=== PATIENT | male | born 1930 | race Two or more races ===

== ENCOUNTER 2018-01-19 20:51 | Inpatient (IN) | payer MEDICARE, OTHER ==
[~2018-01-19] VITALS: Ht 177.8 cm; Wt 90.7 kg
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
--- NOTE | 2018-01-19 21:00 | NUR ---
AT BEDSIDE FOR EVAL.
[2018-01-19 21:21] LABS: BASOPHILS % (AUTO) 0.6 % (0.0-2.0); EOSINOPHILS % (AUTO) 3.5 % (0.0-6.0); HEMATOCRIT 29 % (39-51); HEMOGLOBIN 8.9 g/dL (13.5-17.5); LYMPHOCYTES % (AUTO) 14.8 % (20.0-44.0); MEAN CORPUSCULAR HGB CONC 31 g/dl (31.0-36.0); MEAN CORPUSCULAR VOLUME 76 fL (80-96); MONOCYTES # (AUTO) 0.7 /CMM (0.1-1.30); MONOCYTES % (AUTO) 9.6 % (2.0-12.0); NEUTROPHILS % (AUTO) 71.5 % (43.0-81.0); PLATELET COUNT (AUTO) 325 /CMM (150-450); RDW COEFFICIENT OF VARIATION 19.5 (11.5-15.0); RED BLOOD CELL COUNT(AUTO) 3.83 MIL/uL (4.5-6.0); WHITE BLOOD COUNT (AUTO) 7.1 K/uL (4.3-11.0)
[2018-01-19 21:31] LABS: CALCIUM, SERUM 8.8 mg/dL (8.5-10.1); CARBON DIOXIDE 28 mmol/L (21-32); CHLORIDE 103 mmol/L (98-107); CREATININE 0.8 mg/dL (0.6-1.3); GLUCOSE 100 mg/dL (74-106); SODIUM SERUM 139 mmol/L (136-145); UREA NITROGEN, BLOOD 13 mg/dL (7-18)
[2018-01-19 21:38] LABS: ACETAMINOPHEN 2 ug/ml (10-30); ALANINE AMINOTRANSFERASE 16 U/L (12-78); ALCOHOL, BLOOD < 3 mg/dL (0-0); ALKALINE PHOSPHATASE 87 U/L (46-116); ASPARTATE AMINOTRANSFERASE 18 U/L (15-37); BILIRUBIN,DIRECT 0.1 mg/dL (0.0-0.2); BILIRUBIN,TOTAL 0.2 mg/dL (0.2-1.0); TOTAL PROTEIN, SERUM 6.9 g/dL (6.4-8.2)
[2018-01-19 21:39] LABS: SALICYLATE 0.7 mg/dL (2.8-20.0)
--- NOTE | 2018-01-19 21:42 | NUR ---
CALLED [employer] FOR EVAL. MADE AWARE
--- NOTE | 2018-01-19 23:05 | NUR ---
PT ASSIGNED TO 211-B
--- NOTE | 2018-01-19 23:33 | NUR ---
REPORT GIVEN TO SHERMAN WINTER FOR [facility] 211-[facility]
[2018-01-20 00:05] VITALS: BP 144/76
--- NOTE | 2018-01-20 00:10 | NUR ---
PT TRANSPORTED TO [facility] VIA WITH EMT. VSS.
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
[2018-01-20] MEDS ORDERED: ESCI5TAB PO (00:21)
[2018-01-20] MEDS ORDERED: LOSA25TA13 PO (00:22)
[2018-01-20] MEDS ORDERED: FURO20TA4 PO (00:23)
[2018-01-20] MEDS ORDERED: FINA5TAB11 PO (00:24)
[2018-01-20] MEDS ORDERED: CRAN400T3 PO (00:25)
[2018-01-20] MEDS ORDERED: ATOR20TA PO (00:26)
[2018-01-20] MEDS ORDERED: ASPI-605 PO (00:27)
[2018-01-20] MEDS ORDERED: ALFU10TA10 PO (00:28)
[2018-01-20] MEDS ORDERED: TEMA15CA PO (00:29)
[2018-01-20] MEDS ORDERED: GABA-532 PO (00:30)
[2018-01-20] MEDS ORDERED: MELA5TAB PO (00:32)
[2018-01-20] MEDS ORDERED: TRAZ-182 PO (00:33)
[2018-01-20] MEDS ORDERED: TEMAZEPAM 15 MG CAPSULE PO PRN (01:00)
[2018-01-20] MEDS ORDERED: MAG HYDROX/AL HYDROX/SIMETH 30 ML UDC PO PRN (01:00)
[2018-01-20] MEDS ORDERED: LORAZEPAM 0.5 MG TABLET PO PRN (01:00)
[2018-01-20 08:27] LABS: APPEARANCE,URINE SL CLOUDY (CLEAR); BILIRUBIN,URINE NEGATIVE (NEGATIVE); BLOOD, URINE TRACE Ery/uL (NEGATIVE); COLOR,URINE YELLOW (YELLOW); KETONES,URINE NEGATIVE (NEGATIVE); LEUKOCYTE ESTERASE ,URINE 3+ (NEGATIVE); NITRITE, URINE NEGATIVE (NEGATIVE); PROTEIN,URINE NEGATIVE (NEGATIVE); UGLUCOSE NEGATIVE (NEGATIVE); UROBILINOGEN,URINE 0.2 EU/dL (0.2)
[2018-01-20 08:37] LABS: RBC,URINE 0-3 /HPF (0-2); WBC,URINE 51-80 /HPF (0-3)
[2018-01-20 08:38] LABS: BACTERIA,URINE Few /HPF (None Seen); SQUAMOUS EPITHELIAL CELL,UR Few /HPF (None Seen)
[2018-01-20 08:54] VITALS: BP 140/72
[2018-01-20] MEDS ORDERED: CRANBERRY FRUIT 400 MG PO SCH (09:00)
[2018-01-20] MEDS ORDERED: Alfuzosin Hcl 10 MG PO SCH (09:00)
[2018-01-20] MEDS: LOSARTAN POTASSIUM 25 MG TABLET PO SCH (09:10)
[2018-01-20] MEDS: FINASTERIDE (5 MG) 5 MG TABLET PO SCH (09:10)
[2018-01-20] MEDS: ATORVASTATIN 10 MG TABLET PO SCH (09:10)
[2018-01-20] MEDS: GABAPENTIN 100 MG CAPSULE PO SCH ×2 (09:10→16:20)
[2018-01-20] MEDS: ASPIRIN EC 81 MG TABLET.DR PO SCH (09:10)
[2018-01-20] MEDS: FUROSEMIDE 20 MG TABLET PO SCH (09:11)
--- NOTE | 2018-01-20 12:09 | NUR ---
WOUND CARE CONSULT: PT IS AMBULATORY AND CONTINENT. PT NOTED TO HAVE 4+ PITTING EDEMA TO BILATERAL LOWER LEGS, ANKLE AREAS AND FEET. DRY SCRATCHES/OLD RASH NOTED TO BACK. SKIN GROWTH NOTED TO LEFT PLANTAR FOOT. DEFER TO MD FOR SKIN GROWTH. WILL SEE PRN. MD IN AGREEMENT WITH PLAN OF CARE. Addendum: 01/20/18 at 1210 by MOSES ZAMAN WNDNU Amended: Links added.
[2018-01-20 16:00] VITALS: BP 135/62
[2018-01-20] MEDS: ESCITALOPRAM OXALATE (10 MG) 10 MG TABLET PO SCH (19:41)
[2018-01-20 19:53] VITALS: BP 112/53
[2018-01-20] MEDS: DIVALPROEX SODIUM 125 MG TABLET.DR PO SCH (20:05)
[2018-01-21 07:18] LABS: HEMATOCRIT 25 % (39-51); HEMOGLOBIN 8.5 g/dL (13.5-17.5); MEAN CORPUSCULAR HGB CONC 34 g/dl (31.0-36.0); MEAN CORPUSCULAR VOLUME 86 fL (80-96); PLATELET COUNT (AUTO) 302 /CMM (150-450); RDW COEFFICIENT OF VARIATION 19.1 (11.5-15.0); RED BLOOD CELL COUNT(AUTO) 2.95 MIL/uL (4.5-6.0); WHITE BLOOD COUNT (AUTO) 6.1 K/uL (4.3-11.0)
[2018-01-21 07:27] LABS: CHOLESTEROL 102 mg/dL (<200); HDL CHOLESTEROL 44 mg/dL (40-60); LDL 47 mg/dL (0-99); TRIGLYCERIDES 50 mg/dL (30-150)
[2018-01-21 07:29] LABS: ALANINE AMINOTRANSFERASE 15 U/L (12-78); ALBUMIN 2.8 g/dL (3.4-5.0); ALKALINE PHOSPHATASE 72 U/L (46-116); ASPARTATE AMINOTRANSFERASE 15 U/L (15-37); BILIRUBIN,TOTAL 0.4 mg/dL (0.2-1.0); CALCIUM, SERUM 8.8 mg/dL (8.5-10.1); CARBON DIOXIDE 28 mmol/L (21-32); CHLORIDE 103 mmol/L (98-107); CREATININE 0.7 mg/dL (0.6-1.3); GLUCOSE 89 mg/dL (74-106); POTASSIUM 4.1 mmol/L (3.5-5.1); SODIUM SERUM 136 mmol/L (136-145); TOTAL PROTEIN, SERUM 6.2 g/dL (6.4-8.2); UREA NITROGEN, BLOOD 11 mg/dL (7-18)
[2018-01-21 08:08] VITALS: BP 132/68
[2018-01-21] MEDS: DIVALPROEX SODIUM 125 MG TABLET.DR PO SCH ×2 (08:40→21:28)
[2018-01-21] MEDS: FINASTERIDE (5 MG) 5 MG TABLET PO SCH (08:40)
[2018-01-21] MEDS: LOSARTAN POTASSIUM 25 MG TABLET PO SCH (08:40)
[2018-01-21] MEDS: FUROSEMIDE 20 MG TABLET PO SCH (08:40)
[2018-01-21] MEDS: ATORVASTATIN 10 MG TABLET PO SCH (08:40)
[2018-01-21] MEDS: ASPIRIN EC 81 MG TABLET.DR PO SCH (08:40)
[2018-01-21] MEDS: GABAPENTIN 100 MG CAPSULE PO SCH ×2 (08:41→17:40)
[2018-01-21 09:27] LABS: EOSINOPHILS % (MANUAL) 1 % (0-4); LYMPHOCYTES % (MANUAL) 21 % (16-48); MONOCYTES % (MANUAL) 1 % (0-11.0); NEUTROPHILS % (MANUAL) 77 (42-76)
[2018-01-21 16:00] VITALS: BP 120/64
--- NOTE | 2018-01-21 17:23 | NUR ---
[id number]: SEEN BY DR. MILLIGAN AND WRITTEN NOTES MADE AWARE OF LABS. NO NEW ORDERS GIVEN AT THIS TIME.
[2018-01-21] MEDS: ESCITALOPRAM OXALATE (10 MG) 10 MG TABLET PO SCH (17:40)
[2018-01-21 20:03] VITALS: BP 121/56
[2018-01-21 23:00] VITALS: BP 123/65
--- NOTE | 2018-01-22 07:30 | NUR ---
RN GPS NOTES PT AWAKE, SITTING IN BED, EATING BREAKFAST, CALM AT THIS TIME, ALERT AND VERBALLY RESPONSIVE, DENIES PAIN, NOT IN DISTRESS.
[2018-01-22 08:00] VITALS: BP 132/77
[2018-01-22] MEDS: ASPIRIN EC 81 MG TABLET.DR PO SCH (09:04)
[2018-01-22] MEDS: FUROSEMIDE 20 MG TABLET PO SCH (09:05)
[2018-01-22] MEDS: ATORVASTATIN 10 MG TABLET PO SCH (09:05)
[2018-01-22] MEDS: GABAPENTIN 100 MG CAPSULE PO SCH ×2 (09:05→16:23)
[2018-01-22] MEDS: LOSARTAN POTASSIUM 25 MG TABLET PO SCH (09:05)
[2018-01-22] MEDS: FINASTERIDE (5 MG) 5 MG TABLET PO SCH (09:05)
[2018-01-22] MEDS: DIVALPROEX SODIUM 125 MG TABLET.DR PO SCH ×2 (09:05→21:19)
--- NOTE | 2018-01-22 15:35 | NUR ---
Initial Discharge Plan: Pt resides at the [facility], [address] [address]; per pts daughter report. Pt reported that he would like to return to his family home upon discharge ([address] [address]). SW spoke to pts daughter, Cheli Micahel, who agreed to discharge pt to a SNF; as it was recommended by his treating psychiatrist, Dr. Marroquin. SW informed pts daughter that pt had been accepted to [facility]. Cheli asked if pt could be discharged to [facility], [address] [facility] [address]; . SW will follow up to ensure pt is safely and adequately discharged.
--- NOTE | 2018-01-22 15:45 | NUR ---
SW faxed inquiry (face sheet, P&P, H&P, and med list) to [facility], [address] [place] [address]; , fax per pts daughter, Cheli Michael's request . BIRDIE will follow up.
[2018-01-22 16:00] VITALS: BP 113/58
[2018-01-22] MEDS: ESCITALOPRAM OXALATE (10 MG) 10 MG TABLET PO SCH (16:25)
--- NOTE | 2018-01-22 18:24 | NUR ---
RN GPS NOTES PT SITTING IN HIS ROOM, CALM AND COOPERATIVE WITH CARE, STAYED IN HIS ROOM MOST OF THE DAY, TOLERATING CURRENT DIET WELL, NEEDS ATTENDED, SAFETY PRECAUTIONS OBSERVED.
[2018-01-22 20:14] VITALS: BP 122/56
[2018-01-22 22:30] VITALS: BP 124/62
[2018-01-23 08:00] VITALS: BP 121/80
[2018-01-23] MEDS: DIVALPROEX SODIUM 125 MG TABLET.DR PO SCH ×2 (08:05→20:50)
[2018-01-23] MEDS: ASPIRIN EC 81 MG TABLET.DR PO SCH (08:05)
[2018-01-23] MEDS: FUROSEMIDE 20 MG TABLET PO SCH (08:05)
[2018-01-23] MEDS: GABAPENTIN 100 MG CAPSULE PO SCH ×2 (08:05→16:20)
[2018-01-23] MEDS: ATORVASTATIN 10 MG TABLET PO SCH (08:06)
[2018-01-23] MEDS: LOSARTAN POTASSIUM 25 MG TABLET PO SCH (08:06)
[2018-01-23] MEDS: FINASTERIDE (5 MG) 5 MG TABLET PO SCH (08:06)
--- NOTE | 2018-01-23 12:25 | NUR ---
SW faxed inquiry (face sheet, P&P, H&P, and med list) to [facility]; fax and per pts daughter, Cheli Michael's request . Inquiry was also faxed to: [facility], [address] [facility] [address] [facility] [address]; and fax # , [facility], [address] [facility] [place] [address]; and fax # and [facility]; fax. BIRDIE will follow up.
[2018-01-23 16:00] VITALS: BP 136/74
[2018-01-23] MEDS: ESCITALOPRAM OXALATE (10 MG) 10 MG TABLET PO SCH (16:20)
[2018-01-23 20:00] VITALS: BP 116/60
[2018-01-24 07:33] VITALS: BP 114/55
[2018-01-24] MEDS: FINASTERIDE (5 MG) 5 MG TABLET PO SCH (08:38)
[2018-01-24] MEDS: DIVALPROEX SODIUM 125 MG TABLET.DR PO SCH ×2 (08:38→20:56)
[2018-01-24] MEDS: ASPIRIN EC 81 MG TABLET.DR PO SCH (08:39)
[2018-01-24] MEDS: ATORVASTATIN 10 MG TABLET PO SCH (08:39)
[2018-01-24] MEDS: GABAPENTIN 100 MG CAPSULE PO SCH ×2 (08:39→17:04)
[2018-01-24] MEDS: FUROSEMIDE 20 MG TABLET PO SCH (09:35)
[2018-01-24] MEDS: LOSARTAN POTASSIUM 25 MG TABLET PO SCH (11:00)
[2018-01-24 15:39] VITALS: BP 125/96
[2018-01-24] MEDS: MAGNESIUM HYDROXIDE 30 ML UDC PO PRN (16:25)
[2018-01-24] MEDS: ACETAMINOPHEN 325 MG TABLET PO PRN ×2 (16:38→21:04)
[2018-01-24] MEDS: ESCITALOPRAM OXALATE (10 MG) 10 MG TABLET PO SCH (17:04)
[2018-01-24 20:00] VITALS: BP 136/58
[2018-01-25 08:00] VITALS: BP 132/71
[2018-01-25 09:00] LABS: EOSINOPHILS % (AUTO) 2.6 % (0.0-6.0); HEMATOCRIT 26 % (39-51); HEMOGLOBIN 8.1 g/dL (13.5-17.5); LYMPHOCYTES # (AUTO) 0.7 /CMM (0.8-4.8); LYMPHOCYTES % (AUTO) 14.9 % (20.0-44.0); MEAN CORPUSCULAR HGB CONC 32 g/dl (31.0-36.0); MEAN CORPUSCULAR VOLUME 74 fL (80-96); MONOCYTES # (AUTO) 0.7 /CMM (0.1-1.30); MONOCYTES % (AUTO) 15.4 % (2.0-12.0); NEUTROPHILS # (AUTO) 3.2 /CMM (1.8-8.9); NEUTROPHILS % (AUTO) 67.1 % (43.0-81.0); PLATELET COUNT (AUTO) 312 /CMM (150-450); RDW COEFFICIENT OF VARIATION 18.9 (11.5-15.0); RED BLOOD CELL COUNT(AUTO) 3.46 MIL/uL (4.5-6.0); WHITE BLOOD COUNT (AUTO) 4.7 K/uL (4.3-11.0)
[2018-01-25] MEDS: FINASTERIDE (5 MG) 5 MG TABLET PO SCH (09:04)
[2018-01-25] MEDS: ASPIRIN EC 81 MG TABLET.DR PO SCH (09:04)
[2018-01-25] MEDS: DIVALPROEX SODIUM 125 MG TABLET.DR PO SCH ×2 (09:05→20:55)
[2018-01-25] MEDS: ATORVASTATIN 10 MG TABLET PO SCH (09:05)
[2018-01-25] MEDS: FUROSEMIDE 20 MG TABLET PO SCH (09:05)
[2018-01-25] MEDS: LOSARTAN POTASSIUM 25 MG TABLET PO SCH (09:05)
[2018-01-25] MEDS: GABAPENTIN 100 MG CAPSULE PO SCH ×2 (09:06→17:10)
[2018-01-25 09:54] LABS: BAND % (MANUAL) 2 % (0.0-5.0); EOSINOPHILS % (MANUAL) 2 % (0-4); LYMPHOCYTES % (MANUAL) 10 % (16-48); MONOCYTES % (MANUAL) 15 % (0-11.0); NEUTROPHILS % (MANUAL) 71 (42-76)
[2018-01-25 16:04] VITALS: BP 136/75
[2018-01-25] MEDS: ESCITALOPRAM OXALATE (10 MG) 10 MG TABLET PO SCH (17:09)
[2018-01-25 20:00] VITALS: BP 108/50
[2018-01-26 08:00] VITALS: BP 129/62
[2018-01-26] MEDS: ASPIRIN EC 81 MG TABLET.DR PO SCH (08:18)
[2018-01-26] MEDS: FINASTERIDE (5 MG) 5 MG TABLET PO SCH (08:18)
[2018-01-26] MEDS: DIVALPROEX SODIUM 125 MG TABLET.DR PO SCH ×2 (08:18→21:11)
[2018-01-26] MEDS: GABAPENTIN 100 MG CAPSULE PO SCH ×2 (08:18→16:14)
[2018-01-26] MEDS: FUROSEMIDE 20 MG TABLET PO SCH (08:19)
[2018-01-26] MEDS: ATORVASTATIN 10 MG TABLET PO SCH (08:19)
[2018-01-26] MEDS: LOSARTAN POTASSIUM 25 MG TABLET PO SCH (08:20)
[2018-01-26] MEDS: ESCITALOPRAM OXALATE (10 MG) 10 MG TABLET PO SCH (16:13)
[2018-01-26 16:14] VITALS: BP 133/65
[2018-01-26 20:02] VITALS: BP 122/55
[2018-01-27 06:15] VITALS: BP 120/65
[2018-01-27 08:00] VITALS: BP 104/55
[2018-01-27] MEDS: GABAPENTIN 100 MG CAPSULE PO SCH ×2 (08:34→16:26)
[2018-01-27] MEDS: FUROSEMIDE 20 MG TABLET PO SCH (08:34)
[2018-01-27] MEDS: FINASTERIDE (5 MG) 5 MG TABLET PO SCH (08:34)
[2018-01-27] MEDS: ATORVASTATIN 10 MG TABLET PO SCH (08:34)
[2018-01-27] MEDS: DIVALPROEX SODIUM 125 MG TABLET.DR PO SCH ×2 (08:34→20:52)
[2018-01-27] MEDS: ASPIRIN EC 81 MG TABLET.DR PO SCH (08:35)
[2018-01-27] MEDS: LOSARTAN POTASSIUM 25 MG TABLET PO SCH (08:35)
--- NOTE | 2018-01-27 14:25 | NUR ---
SW arranged for Sarthak from [facility] to assess pt at [facility] in order to evaluate his appropriateness for their facility. WSW also faxed an updated inquiry per their request. SW will contact pts family to provide them with an update to ensure pt is safely and adequately discharged.
--- NOTE | 2018-01-27 14:29 | NUR ---
BIRDIE received confirmation from [facility] stating that pt would not be accommodated in their facility due to, "risk to our staff and other patients." BIRDIE will follow up by faxing inquiry to [facility] per Dr. Marroquin's request.
[2018-01-27 16:00] VITALS: BP 132/63
[2018-01-27] MEDS: ESCITALOPRAM OXALATE (10 MG) 10 MG TABLET PO SCH (16:26)
[2018-01-27 19:31] VITALS: BP 136/71
[2018-01-28 08:00] VITALS: BP 141/69
[2018-01-28] MEDS: ATORVASTATIN 10 MG TABLET PO SCH (09:02)
[2018-01-28] MEDS: FUROSEMIDE 20 MG TABLET PO SCH (09:02)
[2018-01-28] MEDS: FINASTERIDE (5 MG) 5 MG TABLET PO SCH (09:02)
[2018-01-28] MEDS: GABAPENTIN 100 MG CAPSULE PO SCH ×2 (09:02→17:05)
[2018-01-28] MEDS: ASPIRIN EC 81 MG TABLET.DR PO SCH (09:02)
[2018-01-28] MEDS: LOSARTAN POTASSIUM 25 MG TABLET PO SCH (09:03)
[2018-01-28] MEDS: DIVALPROEX SODIUM 125 MG TABLET.DR PO SCH ×2 (09:03→21:02)
[2018-01-28 16:00] VITALS: BP 119/68
[2018-01-28] MEDS: ESCITALOPRAM OXALATE (10 MG) 10 MG TABLET PO SCH (17:05)
--- NOTE | 2018-01-28 19:20 | NUR ---
GPS/RN OPENING NOTES PATIENT IN BED, ABLE TO VERBALIZE NEEDS, REPORTED NOT HAVING BOWEL MOVEMENT AND INFORM WILL GIVE PRN MOM, AND MONITOR, PER AM RN LAST BM WAS 01/26/18. PATIENT REQUIRE CONSTANT REMINDER AND REORIENTATION, RESPIRATIONS EVEN AND UNLABORED AND MONITORING FOR ANY CHANGES AND BEHAVIOR CHANGES.
[2018-01-28] MEDS: MAGNESIUM HYDROXIDE 30 ML UDC PO PRN (19:43)
[2018-01-28 20:00] VITALS: BP 140/66
[2018-01-29 08:00] VITALS: BP 115/50
[2018-01-29] MEDS: GABAPENTIN 100 MG CAPSULE PO SCH (09:29)
[2018-01-29] MEDS: FINASTERIDE (5 MG) 5 MG TABLET PO SCH (09:29)
[2018-01-29] MEDS: ATORVASTATIN 10 MG TABLET PO SCH (09:29)
[2018-01-29] MEDS: DIVALPROEX SODIUM 125 MG TABLET.DR PO SCH (09:29)
[2018-01-29] MEDS: ASPIRIN EC 81 MG TABLET.DR PO SCH (09:31)
[2018-01-29 09:32] VITALS: BP 134/69
[2018-01-29] MEDS: FUROSEMIDE 20 MG TABLET PO SCH (09:32)
[2018-01-29] MEDS: LOSARTAN POTASSIUM 25 MG TABLET PO SCH (09:32)
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
--- NOTE | 2018-01-29 15:55 | NUR ---
Discharge Plan: Patient will discharge to [facility], [address] [place] [address]; and fax # via ambulance at 3:00pm (trip # [id number]). Pt has been notified and is agreement. Pts daughter, Cheli Michael has also been notified of pts discharge plans. Pt will be followed by the following physicians: Community Outreach Coordinator, Dr. Anderson, [address] [place] [address]; and Psychiatrist, Dr. Marroquin, [address] [facility]. [phone] [place]. [phone]; at the facility.
== END 2018-01-29 15:00 | DRG 885 ==
LOC: ER 20:53 → GPS 23:23
PROVIDERS: ADMIT Psychiatry & Neurology Psychosomatic Medicine; ATTEND Psychiatry & Neurology Psychosomatic Medicine
DX: F31.9 Bipolar disorder, unspecified (principal); G62.9 Polyneuropathy, unspecified; F03.90 Unspecified dementia, unspecified severity, without behavioral disturbance, psychotic disturbance, mood disturbance, and anxiety; I48.91 Unspecified atrial fibrillation; F41.9 Anxiety disorder, unspecified; F09 Unspecified mental disorder due to known physiological condition; G89.29 Other chronic pain; I10 Essential (primary) hypertension; I25.10 Atherosclerotic heart disease of native coronary artery without angina pectoris; N40.0 Benign prostatic hyperplasia without lower urinary tract symptoms; Z73.6 Limitation of activities due to disability
CPT/HCPCS: 36415; 70450-TC; 80048-TC; 80053-TC; 80061-TC; 80076-TC; 80305; 81000-TC; 85025-TC; 87081-TC; 87086-TC; A4606; G0480; Z7610